=== PATIENT | female | born 1990 | race African-American/Black ===

== ENCOUNTER 2016-11-26 15:41 | Emergency (ER) ==
[2016-11-26 15:57] VITALS: BP 113/73; TEMP 97.7; BMI 28.1
--- NOTE | 2016-11-26 16:00 | ED.PDOC ---
General ED Provider: Dr. RODOLFO QUINTEROS JR Chief Complaint: Cough Stated Complaint: Cough, nonprod x 4-5 days. Started taking Robitussin today. Minor nasal congestion. Cough worse at noc. Throat sore "a little bit".[End] 97.7 75 20 96% 113/73 Time Seen by Physician: 15:59 Mode of Arrival: Walk-In Information Source: Patient Exam Limitations: No limitations [facility] Documentation Reviewed and Agree: No Review of Systems - Review Of Systems Constitutional: Reports: No symptoms Eyes: Reports: No symptoms Ears, Nose, Mouth, Throat: Reports: Throat pain Respiratory: Reports: Cough Cardiac: Reports: No symptoms GI: Reports: No symptoms : Reports: No symptoms Musculoskeletal: Reports: No symptoms Skin: Reports: No symptoms Neurological: Reports: No symptoms Endocrine: Reports: No symptoms Hematologic/Lymphatic: Reports: Swollen glands (tender ant nodes- no fever no throat erythema) All Other Systems: Other Past Medical History - Past Medical History Previously Healthy: Yes Endocrine: Reports: None Cardiovascular: Reports: None Respiratory: Reports: None Hematological: Reports: None Gastrointestinal: Reports: None Genitourinary: Reports: None Neuro/Psych: Reports: None Musculoskeletal: Reports: None Cancer: Reports: None Last Menstrual Period: beginning of november Other Pertinent Past Medical History: 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- - Surgical History General Surgical History: Reports: Tonsillectomy, Other (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-) - Family History Family History: Reports: Unknown - Social History Smoking Status: Current every day smoker, Light tobacco smoker Hx Substance Use: No Alcohol Screening: Occasionally Physical Exam - Physical Exam Appearance: Well-appearing Pain Distress: Mild Eyes: TONO, EOMI, Conjunctiva clear ENT: Ears normal, Nose normal, Oropharynx normal Neck: Supple (note tender nodes) Respiratory: Airway patent, Breath sounds clear, Breath sounds equal, Respirations nonlabored Cardiovascular: RRR, Pulses normal, No rub, No murmur GI/: Soft, Nontender, No masses, Bowel sounds normal, No Organomegaly Musculoskeletal: Normal strength, ROM intact, No edema, No calf tenderness Skin: Warm, Dry, Normal color Neurological: Sensation intact, Motor intact, Reflexes intact, Cranial nerves intact, Alert, Oriented Psychiatric: Affect appropriate, Mood appropriate Critical Care Note - Critical Care Note Total Time (mins): 0 Course - Course Vital Signs: Temp Pulse Resp BP Pulse Ox 11/26/16 15:43 97.7 F 75 20 113/73 96 Departure - Departure Time of Disposition: 16:10 Disposition: HOME SELF-CARE Discharge Problem: Cough Instructions: Chronic Cough (ED), Guaifenesin (By mouth), Dextromethorphan (By mouth), Antitussives (By mouth) Condition: Good Pt referred to PMD for follow-up: Yes Additional Instructions: Robitussin with codeine for cough chloraeptic for sore throat generics are fine avoid others if fever over 101.0 return if worse follwo up PMD if not improved or if productive cough Prescriptions: Guaifenesin/Codeine Phosphate [Robitussin AC Syrup] 10 ml PO Q6H PRN #240 ml PRN Reason: Cough Allergies/Adverse Reactions: Allergies No Known Allergies Allergy (Verified 11/26/16 15:50) Home Medications: Ambulatory Orders Guaifenesin/Codeine Phosphate [Robitussin AC Syrup] 10 ml PO Q6H PRN #240 ml
== END 2016-11-26 16:23 | disposition home or self-care (01) ==
LOC: ED 15:41
DX: R05 Cough (principal); J02.9 Acute pharyngitis, unspecified; F17.210 Nicotine dependence, cigarettes, uncomplicated
CPT/HCPCS: 99282

== ENCOUNTER 2017-05-28 12:54 | Outpatient (CLI) ==
[2017-05-28 12:58] LABS: FLU INTERNAL QC INTERNAL QC VALID; RAPID FLU A NEGATIVE (NEGATIVE); RAPID FLU B NEGATIVE (NEGATIVE)
== END 2017-05-28 12:55 | disposition home or self-care (01) ==
LOC: LAB 12:54
PROVIDERS: ATTEND Nurse Practitioner Family
DX: J02.9 Acute pharyngitis, unspecified (principal); R50.9 Fever, unspecified
CPT/HCPCS: 87804; 87880

== ENCOUNTER 2017-07-08 22:26 | Emergency (ER) ==
[2017-07-08 22:35] VITALS: BP 107/65; TEMP 96.7; BMI 26.9
[2017-07-08] MEDS ORDERED: NORCO 7.5-325 PO STA (22:45)
[2017-07-08] MEDS ORDERED: AUGMENTIN 875-125 MG TAB PO STA (22:45)
--- NOTE | 2017-07-08 22:48 | ED.PDOC ---
General ED Provider: Dr. RENZO SANDERS-ER Chief Complaint: Earache Stated Complaint: my ear hurts Time Seen by Physician: 22:46 Mode of Arrival: Walk-In Information Source: Patient Exam Limitations: No limitations Primary [facility] and Triage Documentation Reviewed and Agree: Yes Reviewed sepsis parameters & appropriate labs ordered?: Yes System Inflammatory Response Syndrome: Not Applicable Sepsis Protocol: For patient's 13 years and over: Temp is 96.8 and below OR 101 and greater Pulse >90 BPM Resp >20/minute Acutely Altered Mental Status Are patient's symptoms suggestive of a new infection, such as: -Pneumonia -Skin, Soft Tissue -Endocarditis -UTI -Bone, Joint Infection -Implantable Device -Acute Abdominal Infection -Wound Infection -Meningitis -Blood Stream Catheter Infection -Unknown EENT Complaint Exam - Ear Complaint/Exam Onset/Duration: 24hrs Symptoms Are: Still present Timing: Constant Initial Severity: Mild Current Severity: Mild Character: Reports: Dull pain, Aching pain Aggravating: Reports: Tugging on ear Alleviating: Reports: None Associated Signs and Symptoms: Reports: Ear swelling Vesicles to External Pinna: No Vesicles to Tragus: No TMJ Tenderness: None Mastoid Tenderness: None Tragal Tenderness: None External Canal: Erythema, Tenderness, Swelling Differential Diagnoses: Otitis Externa Review of Systems - Review Of Systems Constitutional: Reports: No symptoms Eyes: Reports: No symptoms Ears, Nose, Mouth, Throat: Reports: Ear pain Respiratory: Reports: No symptoms Cardiac: Reports: No symptoms GI: Reports: No symptoms : Reports: No symptoms Musculoskeletal: Reports: No symptoms Skin: Reports: No symptoms Neurological: Reports: No symptoms Endocrine: Reports: No symptoms Hematologic/Lymphatic: Reports: No symptoms All Other Systems: Reviewed and Negative Past Medical History - Past Medical History Previously Healthy: Yes Endocrine: Reports: None Cardiovascular: Reports: None Respiratory: Reports: None Hematological: Reports: None Gastrointestinal: Reports: None Genitourinary: Reports: None Neuro/Psych: Reports: None Musculoskeletal: Reports: None Cancer: Reports: None Last Menstrual Period: 6 days ago Other Pertinent Past Medical History: 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- - Surgical History General Surgical History: Reports: Tonsillectomy, Other (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-) - Family History Family History: Reports: Unknown - Social History Smoking Status: Current every day smoker, Light tobacco smoker Hx Substance Use: No Alcohol Screening: Occasionally - Immunizations Tetanus Shot up to Date: No Physical Exam - Physical Exam Appearance: Well-appearing Ill-appearing: Mild Eyes: TONO, EOMI, Conjunctiva clear ENT: Ears normal, Nose normal, Erythema Neck: Supple Respiratory: Airway patent Cardiovascular: RRR, Pulses normal, No rub, No murmur GI/: Soft, Nontender, No masses, Bowel sounds normal, No Organomegaly Musculoskeletal: Normal strength, ROM intact, No edema, No calf tenderness Skin: Warm, Dry, Normal color Neurological: Sensation intact, Motor intact, Reflexes intact, Cranial nerves intact, Alert, Oriented Psychiatric: Affect appropriate, Mood appropriate Critical Care Note - Critical Care Note Total Time (mins): 0 Course - Course Orders, Labs, Meds: Orders Category Date Time Status Amoxicillin/Potassium Clav [Augmentin 875-125 mg Tab] MEDS 07/08/17 22:45 Stat 1 tab PO ONCE STA Hydrocodone Bit/Acetaminophen [Rose 7.5-325] MEDS 07/08/17 22:45 Stat 1 tab PO ONCE STA Vital Signs: Temp Pulse Resp BP Pulse Ox 07/08/17 22:28 96.7 F L 84 20 107/65 98 Departure - Departure Time of Disposition: 22:47 Disposition: HOME SELF-CARE Discharge Problem: Otitis media Qualifiers: Otitis media type: suppurative Chronicity: acute Laterality: left Recurrence: not specified as recurrent Spontaneous tympanic membrane rupture: without spontaneous rupture Qualified Code(s): H66.002 - Acute suppurative otitis media without spontaneous rupture of ear drum, left ear Otitis externa Qualifiers: Otitis externa type: noninfectious Noninfectious otitis externa type: other type Chronicity: acute Laterality: left Qualified Code(s): H60.592 - Other noninfective acute otitis externa, left ear Instructions: Otitis Externa (ED) Condition: Good Pt referred to PMD for follow-up: Yes IPMP verified?: No Additional Instructions: norco 7.5mg q 4hrs prn pain #10--augmentin 875mg bid x7 days--floxin otic drops 5 dfrops into the ear bid x 7days--f/u witj pcp Allergies/Adverse Reactions: Allergies No Known Allergies Allergy (Verified 01/29/18 22:33) Home Medications: Ambulatory Orders Ibuprofen 800 mg PO Q8H PRN 05/28/17 Disposition Discussed With: Patient
== END 2017-07-08 23:00 | disposition home or self-care (01) ==
LOC: ED 22:26
DX: H66.002 Acute suppurative otitis media without spontaneous rupture of ear drum, left ear (principal); H60.592 Other noninfective acute otitis externa, left ear; F17.210 Nicotine dependence, cigarettes, uncomplicated
CPT/HCPCS: 99282

== ENCOUNTER 2017-08-27 22:14 | Emergency (ER) ==
[2017-08-27 22:29] VITALS: BP 105/74; TEMP 99.1; BMI 26.6
[2017-08-27] MEDS ORDERED: DECADRON 4 MG/ML SDV IM STA (22:41)
[2017-08-27] MEDS ORDERED: TORADOL IM STA (22:41)
--- NOTE | 2017-08-27 22:44 | ED.PDOC ---
General ED Provider: Dr. LENCHO KANG Chief Complaint: Fever Stated Complaint: Been coughing, congested, not getting better. fever 101, Time Seen by Physician: 22:42 Mode of Arrival: Walk-In Information Source: Patient Primary Care Provider: LENCHO K[facility] Nursing and Triage Documentation Reviewed and Agree: Yes Reviewed sepsis parameters & appropriate labs ordered?: No System Inflammatory Response Syndrome: Not Applicable Sepsis Protocol: For patient's 13 years and over: Temp is 96.8 and below OR 101 and greater Pulse >90 BPM Resp >20/minute Acutely Altered Mental Status Are patient's symptoms suggestive of a new infection, such as: -Pneumonia -Skin, Soft Tissue -Endocarditis -UTI -Bone, Joint Infection -Implantable Device -Acute Abdominal Infection -Wound Infection -Meningitis -Blood Stream Catheter Infection -Unknown Respiratory Complaint Exam - Respiratory Complaint/Exam Symptoms Are: Still present Timing: Constant Initial Severity: Moderate Current Severity: Moderate Location: Chest Character: Reports: Productive cough Aggravating: Reports: URI Alleviating: Reports: None Associated Signs and Symptoms: Reports: Fever, Chills, Nasal congestion, Sinus discomfort. Denies: Rapid breathing, Dyspnea, Chest pain, Pleuritic chest pain , Wheezing, Hemoptysis, Dizziness, Calf pain, Calf swelling, Edema, URI, Hoarseness, Vomiting, Sore throat, Weight loss, Decreased oral intake, Increased thirst, Increased appetite, Increased urination History of Healthcare-Acquired Pneumonia: No Related Surgical History: Reports: None Pulmonary Embolism Risk Factors: None Cardiac Risk Factors: Reports: None Pseudomonas Risk Factors: Reports: None Tuberculosis Risk Factors: Reports: None Status Asthmaticus Risk Factors: Reports: None Home Oxygen Use: No Recent Stress Test: No Recent Echo/LV Function: No Current Antibiotic Use: No Current Asthma Medication Use: No Respiratory Distress: None Inadequate Respiratory Effort: No Dysphagia Present: No Stridor Present: No JVD Present: No Retractions: Not Present Diminished Breath Sounds: No Differential Diagnoses: Pneumonia, Bronchitis, Influenza Review of Systems - Review Of Systems Constitutional: Reports: Fever, Malaise, Weakness Eyes: Reports: No symptoms Ears, Nose, Mouth, Throat: Reports: Nose discharge Respiratory: Reports: Cough Cardiac: Reports: No symptoms GI: Reports: No symptoms : Reports: No symptoms Musculoskeletal: Reports: No symptoms Skin: Reports: No symptoms Neurological: Reports: No symptoms Endocrine: Reports: No symptoms Hematologic/Lymphatic: Reports: No symptoms All Other Systems: Reviewed and Negative Past Medical History - Past Medical History Previously Healthy: Yes Endocrine: Reports: None Cardiovascular: Reports: None Respiratory: Reports: None Hematological: Reports: None Gastrointestinal: Reports: None Genitourinary: Reports: None Neuro/Psych: Reports: None Musculoskeletal: Reports: None Cancer: Reports: None Last Menstrual Period: PRESENTLY Other Pertinent Past Medical History: 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- - Surgical History General Surgical History: Reports: Tonsillectomy, Other (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-) - Family History Family History: Reports: Unknown - Social History Smoking Status: Current every day smoker, Light tobacco smoker Hx Substance Use: No Alcohol Screening: Occasionally - Immunizations Tetanus Shot up to Date: Yes Physical Exam - Physical Exam Appearance: Well-appearing, No pain distress, Well-nourished Eyes: TONO, EOMI, Conjunctiva clear ENT: Ears normal, Nose normal, Oropharynx normal Respiratory: Airway patent, Breath sounds clear, Breath sounds equal, Respirations nonlabored Cardiovascular: RRR, Pulses normal, No rub, No murmur GI/: Soft, Nontender, No masses, Bowel sounds normal, No Organomegaly Musculoskeletal: Normal strength, ROM intact, No edema, No calf tenderness Skin: Warm, Dry, Normal color Neurological: Sensation intact, Motor intact, Reflexes intact, Cranial nerves intact, Alert, Oriented Psychiatric: Affect appropriate, Mood appropriate Interpretation - Radiology Interpretation Radiology Interpretation By: ED Physician Radiology Results: Negative Exam Interpreted: CXR Critical Care Note - Critical Care Note Total Time (mins): 20 Course - Course Orders, Labs, Meds: Lab Review 08/27/17 22:30 Influ A Molecular Assay Negative by naat Influ B Molecular Assay Negative by naat Orders Category Date Time Status FLU A/B MOLECULAR Stat LAB 08/27/17 22:30 Completed Dexamethasone 4 mg/ml Inj [Decadron 4 mg/ml Sdv] MEDS 08/27/17 22:41 Discontinued 4 mg IM ONCE STA Ketorolac Tromethamine [Toradol] MEDS 08/27/17 22:41 Discontinued 30 mg IM ONCE STA CHEST, 2 VIEWS PA & LAT Stat RADS 08/27/17 22:41 Taken Medications Discontinued Medications Generic Name Dose Route Start Last Admin Trade Name Freq PRN Reason Stop Dose Admin Dexamethasone Sodium Phosphate 4 mg 08/27/17 22:41 08/27/17 22:56 Decadron 4 Mg/Ml Sdv IM 08/27/17 22:42 4 mg ONCE STA Administration Ketorolac Tromethamine 30 mg 08/27/17 22:41 08/27/17 22:55 Toradol IM 08/27/17 22:42 30 mg ONCE STA Administration Vital Signs: Temp Pulse Resp BP Pulse Ox 08/27/17 22:15 99.1 F 116 H 20 105/74 98 Departure - Departure Time of Disposition: 23:11 Disposition: HOME SELF-CARE Discharge Problem: URTI (acute upper respiratory infection) Instructions: Upper Respiratory Infection (ED) Condition: Stable Pt referred to PMD for follow-up: Yes IPMP verified?: No Additional Instructions: Take medication with food Increase Hydration probiotics Prescriptions: Cephalexin [Keflex] 500 mg PO Q12HR #14 capsule Guaifenesin/Dextromethorphan [Robitussin Cough-Chest Dm Liq] 10 ml PO TID #1 bottle Prednisone 10 mg PO BIDWM #14 tablet Allergies/Adverse Reactions: Allergies No Known Allergies Allergy (Verified 08/27/17 22:25) Home Medications: Ambulatory Orders Ibuprofen 800 mg PO Q8H PRN 05/28/17 Cephalexin [Keflex] 500 mg PO Q12HR #14 capsule 08/27/17 Guaifenesin/Dextromethorphan [Robitussin Cough-Chest Dm Liq] 10 ml PO TID #1 bottle 08/27/17 Prednisone 10 mg PO BIDWM #14 tablet 08/27/17 Disposition Discussed With: Patient
[2017-08-27] MEDS ORDERED: ROBITUSSIN DM SYRUP PO STA (23:12)
--- NOTE | 2017-08-28 04:48 | DI ---
EXAM: Chest, 2 views, 08/27/2017 HISTORY: Cough COMPARISON: 01/24/2016 FINDINGS / IMPRESSION: Cardiomediastinal countours appear stable. There is no focal pulmonary conso lidation. No pleural effusion or pneumothorax. No acute cardiopulmonary process.
== END 2017-08-27 23:25 | disposition home or self-care (01) ==
LOC: ED 22:14
DX: J06.9 Acute upper respiratory infection, unspecified (principal); F17.210 Nicotine dependence, cigarettes, uncomplicated
CPT/HCPCS: 87502; 96372; 99283

== ENCOUNTER 2017-11-12 21:52 | Emergency (ER) ==
[2017-11-12 21:58] VITALS: BP 113/79; TEMP 97.7; BMI 25.9
[2017-11-12] MEDS ORDERED: DECADRON 4 MG/ML SDV IM STA (22:08)
[2017-11-12] MEDS ORDERED: TORADOL IM STA (22:08)
--- NOTE | 2017-11-12 22:12 | ED.PDOC ---
General ED Provider: Dr. LENCHO KANG Chief Complaint: Back Pain Stated Complaint: Patient works at [employer], she is been hurting in the lower back since eyerday, the pain radiates to both legs, sharp pain,. no tingling. Time Seen by Physician: 22:09 Mode of Arrival: Walk-In Information Source: Patient Primary Care Provider: LENCHO KANG-[facility] Nursing and Triage Documentation Reviewed and Agree: Yes Reviewed sepsis parameters & appropriate labs ordered?: Yes System Inflammatory Response Syndrome: Not Applicable Sepsis Protocol: For patient's 13 years and over: Temp is 96.8 and below OR 101 and greater Pulse >90 BPM Resp >20/minute Acutely Altered Mental Status Are patient's symptoms suggestive of a new infection, such as: -Pneumonia -Skin, Soft Tissue -Endocarditis -UTI -Bone, Joint Infection -Implantable Device -Acute Abdominal Infection -Wound Infection -Meningitis -Blood Stream Catheter Infection -Unknown Musculoskeletal Complaint Exam - Back Pain Complaint/Exam Mechanism of Injury: Reports: No known trauma Symptoms Are: Still present Timing: Constant Episodes Lasting: Minutes Initial Severity: Moderate Current Severity: Moderate Location: Reports: Discrete Character: Reports: Aching, Throbbing Aggravating: Reports: Movements, Lifting, Bending, Walking, Cough Alleviating: Reports: None Associated Signs and Symptoms: Denies: Swelling, Redness, Bruising, Fever, Weakness, Numbness, Tingling, Abdominal pain, Flank pain, Bladder incontinence, Bowel incontinence, Weight loss, Pain with weight bearing TAD Risk Factors: Reports: None AAA Risk Factors: Reports: None Cauda Equina Risk Factors: Reports: None Epidural Abcess Risk Factors: Reports: None Related Surgical History: Reports: None Focal Tenderness: Yes Paraspinal Muscle Tenderness: Yes Paraspinal Muscle Spasm: Yes Scoliosis: No Lordosis: No Kyphosis: No SLR Test: Right Positive, Left Positive Focal Weakness: Present: None Focal Sensory Loss: Present: None Gait: Present: Normal Differential Diagnoses: Fracture, Strain Review of Systems - Review Of Systems Constitutional: Reports: No symptoms Eyes: Reports: No symptoms Ears, Nose, Mouth, Throat: Reports: No symptoms Respiratory: Reports: No symptoms Cardiac: Reports: No symptoms GI: Reports: No symptoms : Reports: No symptoms Musculoskeletal: Reports: Back pain Skin: Reports: No symptoms Neurological: Reports: No symptoms Endocrine: Reports: No symptoms Hematologic/Lymphatic: Reports: No symptoms All Other Systems: Reviewed and Negative Past Medical History - Past Medical History Previously Healthy: Yes Endocrine: Reports: None Cardiovascular: Reports: None Respiratory: Reports: None Hematological: Reports: None Gastrointestinal: Reports: None Genitourinary: Reports: None Neuro/Psych: Reports: None Musculoskeletal: Reports: None Cancer: Reports: None Last Menstrual Period: 11/07/17 Other Pertinent Past Medical History: 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- - Surgical History General Surgical History: Reports: Tonsillectomy, Other (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-) - Family History Family History: Reports: Unknown - Social History Smoking Status: Current every day smoker, Light tobacco smoker Smoking Cessation Counseling Time: > 3 min - 10 min Hx Substance Use: No Alcohol Screening: Occasionally - Immunizations Tetanus Shot up to Date: Yes Physical Exam - Physical Exam Appearance: Ill-appearing, Obese Pain Distress: Moderate Eyes: TONO, EOMI, Conjunctiva clear ENT: Ears normal, Nose normal, Oropharynx normal Respiratory: Airway patent, Breath sounds clear, Breath sounds equal, Respirations nonlabored Cardiovascular: RRR, Pulses normal, No rub, No murmur GI/: Soft, Nontender, No masses, Bowel sounds normal, No Organomegaly Musculoskeletal: Limited ROM, Limited strength Skin: Warm, Dry, Normal color Neurological: Sensation intact, Motor intact, Reflexes intact, Cranial nerves intact, Alert, Oriented Psychiatric: Affect appropriate, Mood appropriate Critical Care Note - Critical Care Note Total Time (mins): 30 Course - Course Orders, Labs, Meds: Orders Category Date Time Status URINALYSIS C & S IF INDICATED Stat LAB 11/12/17 22:08 Uncollected URINE Stat LAB 11/12/17 22:08 Uncollected Dexamethasone 4 mg/ml Inj [Decadron 4 mg/ml Sdv] MEDS 11/12/17 22:08 Stat 4 mg IM ONCE STA Ketorolac Tromethamine [Toradol] MEDS 11/12/17 22:08 Stat 60 mg IM ONCE STA LUMBAR SPINE, 2 OR 3 VIEWS Stat RADS 11/12/17 22:09 Ordered Medications Generic Name Dose Route Start Last Admin Trade Name Freq PRN Reason Stop Dose Admin Dexamethasone Sodium Phosphate 4 mg 11/12/17 22:08 Decadron 4 Mg/Ml Sdv IM 06/05/18 22:09 ONCE STA Ketorolac Tromethamine 60 mg 11/12/17 22:08 Toradol IM 11/12/17 22:09 ONCE STA Vital Signs: Temp Pulse Resp BP Pulse Ox 11/12/17 21:53 97.7 F 94 H 20 113/79 96 Departure - Departure Time of Disposition: 22:11 Disposition: HOME SELF-CARE Discharge Problem: Backache Condition: Stable Pt referred to PMD for follow-up: Yes IPMP verified?: No Additional Instructions: Rest Hot pack F/U [facility] IN 2 DAYS Prescriptions: Cyclobenzaprine HCl [Flexeril] 5 mg PO BID #14 tablet Prednisone 10 mg PO BIDWM #14 tablet Allergies/Adverse Reactions: Allergies No Known Allergies Allergy (Verified 11/12/17 21:58) Home Medications: Ambulatory Orders Cyclobenzaprine HCl [Flexeril] 5 mg PO BID #14 tablet 11/12/17 Prednisone 10 mg PO BIDWM #14 tablet 11/12/17 Disposition Discussed With: Patient
--- NOTE | 2017-11-13 00:37 | DI ---
EXAM: Three views of the lumbar spine. HISTORY: Back pain. FINDINGS: There is mild dextroscoliosis of the thoracolumbar spine. There is normal alignment of the lumbar vertebral bodies and facets. The vertebral body heights and intervertebral disc spaces are m aintained. No evidence of fracture. The pedicles are intact. Impression: Mild dextroscoliosis of the thoracolumbar spine.
[2017-11-13] MEDS ORDERED: MORPHINE 2 MG/ML SYRINGE IM STA (00:53)
== END 2017-11-13 01:20 | disposition home or self-care (01) ==
LOC: ED 21:52
DX: M54.5 Low back pain (principal); F17.210 Nicotine dependence, cigarettes, uncomplicated
CPT/HCPCS: 81001; 81025; 87086; 96372; 99283

== ENCOUNTER 2017-12-07 10:06 | Emergency (ER) ==
[2017-12-07 10:13] VITALS: BP 116/76; TEMP 97.4; BMI 25.3
--- NOTE | 2017-12-07 10:34 | ED.PDOC ---
General ED Provider: Dr. ENE DAVIS Chief Complaint: Back Pain Stated Complaint: Patient is a 27 year old female who comes to the ER with severe lower back pain for the past few weeks. Pain got worse today. She was supposed to follow up with PCP next week. But pain was intolorable so came to the ER. Staets that the flexeril did not help her back pain only made her sleepy. Time Seen by Physician: 10:32 Mode of Arrival: Walk-In Information Source: Patient Exam Limitations: No limitations [facility] T[facility] Documentation Reviewed and Agree: Yes Does patient meet sepsis criteria?: No System Inflammatory Response Syndrome: Pulse >90 BPM Sepsis Protocol: For patient's 13 years and over: Temp is 96.8 and below OR 101 and greater Pulse >90 BPM Resp >20/minute Acutely Altered Mental Status Are patient's symptoms suggestive of a new infection, such as: -Pneumonia -Skin, Soft Tissue -Endocarditis -UTI -Bone, Joint Infection -Implantable Device -Acute Abdominal Infection -Wound Infection -Meningitis -Blood Stream Catheter Infection -Unknown Musculoskeletal Complaint Exam - Back Pain Complaint/Exam Mechanism of Injury: Reports: No known trauma Onset/Duration: 3 weeks Symptoms Are: Still present Timing: Constant Initial Severity: Moderate Current Severity: Severe Location: Reports: Radiating (right thigh) Character: Reports: Aching, Throbbing, Spasmodic Aggravating: Reports: Movements, Lifting, Bending, Walking Alleviating: Reports: Rest Associated Signs and Symptoms: Denies: Swelling, Redness, Bruising, Fever, Weakness, Numbness, Tingling, Abdominal pain, Flank pain, Bladder incontinence, Bowel incontinence, Weight loss, Pain with weight bearing Related History: Reports: Similar episode, Occupational injury (poor lifting technique ) TAD Risk Factors: Reports: None AAA Risk Factors: Reports: None Cauda Equina Risk Factors: Reports: None Focal Tenderness: Yes Paraspinal Muscle Tenderness: Yes Paraspinal Muscle Spasm: Yes Kyphosis: No SLR Test: Right Positive, Left Positive Hip Motion Testing Pain: Right Negative, Left Positive Focal Weakness: Present: None Focal Sensory Loss: Present: None Gait: Present: Abnormal (due to pain ) Back Picture: 1 - pain and tenderness. Differential Diagnoses: Herniated Disk, Strain, Sprain Review of Systems - Review Of Systems Constitutional: Reports: No symptoms Eyes: Reports: No symptoms Ears, Nose, Mouth, Throat: Reports: No symptoms Respiratory: Reports: No symptoms Cardiac: Reports: No symptoms GI: Reports: No symptoms : Reports: No symptoms Musculoskeletal: Reports: Back pain Skin: Reports: No symptoms Neurological: Reports: No symptoms Endocrine: Reports: No symptoms Hematologic/Lymphatic: Reports: No symptoms All Other Systems: Reviewed and Negative Past Medical History - Past Medical History Previously Healthy: Yes Endocrine: Reports: None Cardiovascular: Reports: None Respiratory: Reports: None Hematological: Reports: None Gastrointestinal: Reports: None Genitourinary: Reports: None Neuro/Psych: Reports: None Musculoskeletal: Reports: None Cancer: Reports: None Last Menstrual Period: 11/2017 Other Pertinent Past Medical History: 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- - Surgical History General Surgical History: Reports: Tonsillectomy, Other (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-) - Family History Family History: Reports: Unknown - Social History Smoking Status: Current some day smoker Hx Substance Use: No Alcohol Screening: Occasionally - Immunizations Tetanus Shot up to Date: Yes Physical Exam - Physical Exam Appearance: Well-appearing, Well-nourished Pain Distress: Moderate Neck: Supple Respiratory: Airway patent, Breath sounds clear, Breath sounds equal, Respirations nonlabored Cardiovascular: RRR, Pulses normal, No rub, No murmur GI/: Soft, Nontender, No masses, Bowel sounds normal, No Organomegaly Musculoskeletal: ROM intact, No edema, No calf tenderness, Limited ROM (of lower legs with foll extension -staight leg raising. ) Skin: Warm, Dry, Normal color Neurological: Sensation intact, Motor intact, Reflexes intact, Cranial nerves intact, Alert, Oriented Psychiatric: Anxious Critical Care Note - Critical Care Note Total Time (mins): 0 Comments: Reviewed ER visit and x rays that were negative no trauma no fever, no spinal tenderness no need for further imaging. Course - Course Orders, Labs, Meds: Lab Review 12/07/17 12/07/17 10:35 10:35 Urine Color Yellow Urine Clarity Slightly Urine pH 7.0 Ur Specific [place] 1.025 Urine Protein Negative Urine Glucose (UA) Negative Urine Ketones Negative Urine Blood 2+ Urine Nitrite Negative Urine Bilirubin Negative Urine Urobilinogen 1.0 Ur Leukocyte Esterase Trace Ur Squamous Epith Cells Pending Urine Test Negative Orders Category Date Time Status URINALYSIS C & S IF INDICATED Stat LAB 12/07/17 10:35 Received URINE Stat LAB 12/07/17 10:35 Completed Ketorolac Tromethamine [Toradol] MEDS 12/07/17 10:49 Stat 60 mg IM ONCE STA Nalbuphine HCl [Nubain] MEDS 12/07/17 10:51 Stat 10 mg IM ONCE STA Vital Signs: Temp Pulse Resp BP Pulse Ox 12/07/17 10:08 97.4 F L 106 H 16 116/76 98 Departure - Departure Time of Disposition: 11:30 Disposition: HOME SELF-CARE Discharge Problem: Low back sprain Qualifiers: Encounter type: initial encounter Qualified Code(s): S33.9XXA - Sprain of unspecified parts of lumbar spine and pelvis, initial encounter Instructions: Low Back Strain (ED), Exercise Safety (ED), Lumbar Radiculopathy (ED), Core Strengthening Exercises (ED) Condition: Fair Pt referred to PMD for follow-up: Yes IPMP verified?: Yes (No recent use. Last filled prescription was Jun 2017 total 10) Additional Instructions: Use proper lifting Technique Off work for 5 days Take Medications as prescribed Follow up with PCP as scheduled next Saturday You may need MRI or Physical therapy Return if worse Prescriptions: Hydrocodone/Acetaminophen [[place] 5-325 Tablet] 1 tab PO Q6HR PRN #20 tablet PRN Reason: PAIN Ibuprofen [Motrin] 600 mg PO Q6H PRN #30 tablet PRN Reason: Analgesia Allergies/Adverse Reactions: Allergies No Known Allergies Allergy (Verified 12/07/17 10:17) Home Medications: Ambulatory Orders Hydrocodone/Acetaminophen [[place] 5-325 Tablet] 1 tab PO Q6HR PRN #20 tablet Ibuprofen [Motrin] 600 mg PO Q6H PRN #30 tablet 12/07/17 Disposition Discussed With: Patient, Family
[2017-12-07] MEDS ORDERED: TORADOL IM STA (10:49)
[2017-12-07] MEDS ORDERED: NUBAIN IM STA (10:51)
[2017-12-07] MEDS ORDERED: PHENERGAN 25 MG/ML VIAL 25 MG in SODIUM CHLORIDE 50 ML IV STA (10:54)
[2017-12-07] MEDS ORDERED: DEMEROL 50 MG/ML VIAL IM STA (10:54)
[2017-12-07] MEDS ORDERED: PHENERGAN 25 MG/ML VIAL 25 MG in SODIUM CHLORIDE 50 ML IM STA (10:56)
[2017-12-07] MEDS ORDERED: PHENERGAN 25 MG/ML VIAL ONE (10:58)
[2017-12-07] MEDS ORDERED: PHENERGAN 25 MG/ML VIAL IM STA (11:02)
== END 2017-12-07 11:38 | disposition home or self-care (01) ==
LOC: ED 10:06
DX: S33.9XXA Sprain of unspecified parts of lumbar spine and pelvis, initial encounter (principal); X50.1XXA Overexertion from prolonged static or awkward postures, initial encounter; F17.210 Nicotine dependence, cigarettes, uncomplicated
CPT/HCPCS: 81001; 81025; 96372; 99283

== ENCOUNTER 2018-03-17 12:25 | Emergency (ER) ==
[2018-03-17 12:30] VITALS: BP 110/75; TEMP 96.8; BMI 25.8
[2018-03-17] MEDS: LIDOCAINE HCL 1% SDV SUBCUT STA (12:55)
--- NOTE | 2018-03-17 14:06 | ED.PDOC ---
General ED Provider: Dr. CYRIL CANTU Chief Complaint: Vaginal Bleeding Stated Complaint: Vaginal bleeding X 4 days; cough and back pain (acute/chronic) Time Seen by Physician: 13:55 Mode of Arrival: Walk-In Information Source: Patient Exam Limitations: No limitations Primary Care Provider: TIFFANIE BEDOYA Nursing and Triage Documentation Reviewed and Agree: Yes Does patient meet sepsis criteria?: No System Inflammatory Response Syndrome: Not Applicable Sepsis Protocol: For patient's 13 years and over: Temp is 96.8 and below OR 101 and greater Pulse >90 BPM Resp >20/minute Acutely Altered Mental Status Are patient's symptoms suggestive of a new infection, such as: -Pneumonia -Skin, Soft Tissue -Endocarditis -UTI -Bone, Joint Infection -Implantable Device -Acute Abdominal Infection -Wound Infection -Meningitis -Blood Stream Catheter Infection -Unknown Complaint Exam - UTI Female Complaint/Exam : 1 Para: 1 Hx Total # of Abortions (Spontaneous & Elective): 0 Review of Systems - Review Of Systems Constitutional: Reports: No symptoms Respiratory: Reports: Cough (4 days) : Reports: Other (Vaginal bleeding X 4 days - not heavy) Musculoskeletal: Reports: Back pain (lower back) Neurological: Reports: No symptoms All Other Systems: Reviewed and Negative Past Medical History - Past Medical History Previously Healthy: Yes Endocrine: Reports: None Cardiovascular: Reports: None Respiratory: Reports: None Hematological: Reports: None Gastrointestinal: Reports: None Genitourinary: Reports: None Neuro/Psych: Reports: None Musculoskeletal: Reports: None Cancer: Reports: None Last Menstrual Period: 2 weeks ago Other Pertinent Past Medical History: 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- - Surgical History General Surgical History: Reports: Tonsillectomy, Other (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-) - Family History Family History: Reports: Unknown - Social History Smoking Status: Current some day smoker Hx Substance Use: No Alcohol Screening: Occasionally Physical Exam - Physical Exam Appearance: Well-appearing Eyes: TONO, EOMI ENT: Oropharynx normal Neck: Supple Respiratory: Airway patent, Breath sounds clear, Breath sounds equal Cardiovascular: RRR Musculoskeletal: Normal strength, ROM intact, No edema Skin: Warm, Dry, Normal color Neurological: Sensation intact, Motor intact, Alert, Oriented Psychiatric: Affect appropriate, Mood appropriate Critical Care Note - Critical Care Note Total Time (mins): 15 Course - Course Hematology/Chemistry: 03/17/18 14:18 10/08/18 14:18 Orders, Labs, Meds: Lab Review 03/17/18 03/17/18 03/17/18 12:35 12:35 14:18 WBC 5.12 RBC 4.19 L Hgb 11.2 L Hct 34.7 L MCV 82.8 MCH 26.7 L MCHC 32.3 RDW Coeff of [place] 13.7 Plt Count 185 Immature Gran % (Auto) 0.2 Neut % (Auto) 60.5 Lymph % (Auto) 27.1 Ocean % (Auto) 10.0 Eos % (Auto) 1.8 Baso % (Auto) 0.4 Immature Gran # (Auto) 0.0 Neut # (Auto) 3.1 Lymph # (Auto) 1.4 Ocean # (Auto) 0.5 Eos # (Auto) 0.1 Baso # (Auto) 0.0 Sodium Potassium Chloride Carbon Dioxide Anion Gap BUN Creatinine Estimated GFR (MDRD) BUN/Creatinine Ratio Glucose Calcium Total Bilirubin AST ALT Alkaline Phosphatase Total Protein Albumin Globulin Albumin/Globulin Ratio Urine Color Yellow Urine Clarity Slightly Urine pH 8.5 Ur Specific [place] 1.020 Urine Protein 1+ Urine Glucose (UA) Negative Urine Ketones Negative Urine Blood 3+ Urine Nitrite Negative Urine Bilirubin Negative Urine Urobilinogen 0.2 Ur Leukocyte Esterase Negative Urine Microscopic RBC 20-30 Urine Microscopic WBC 2-5 Ur Squamous Epith Cells 2-5 Urine Bacteria 2+ Urine Mucus 2+ Urine Test Negative 03/17/18 14:18 WBC RBC Hgb Hct MCV MCH MCHC RDW Coeff of [place] Plt Count Immature Gran % (Auto) Neut % (Auto) Lymph % (Auto) Ocean % (Auto) Eos % (Auto) Baso % (Auto) Immature Gran # (Auto) Neut # (Auto) Lymph # (Auto) Ocean # (Auto) Eos # (Auto) Baso # (Auto) Sodium 137.9 Potassium 3.96 Chloride 106.8 Carbon Dioxide 27.6 Anion Gap 7.46 BUN 9.3 Creatinine 0.56 L Estimated GFR (MDRD) 159.00 BUN/Creatinine Ratio 16.60 Glucose 86.8 Calcium 8.61 Total Bilirubin 0.15 L AST 15.6 ALT 8.8 Alkaline Phosphatase 57.6 Total Protein 6.82 Albumin 3.77 Globulin 3.05 Albumin/Globulin Ratio 1.23 Urine Color Urine Clarity Urine pH Ur Specific [place] Urine Protein Urine Glucose (UA) Urine Ketones Urine Blood Urine Nitrite Urine Bilirubin Urine Urobilinogen Ur Leukocyte Esterase Urine Microscopic RBC Urine Microscopic WBC Ur Squamous Epith Cells Urine Bacteria Urine Mucus Urine Test Orders Category Date Time Status CBC W/ AUTO DIFF Stat LAB 03/17/18 14:18 Completed COMPREHENSIVE METABOLIC PANEL Stat LAB 03/17/18 14:18 Completed TEST URINE [URINE ] Stat LAB 03/17/18 12:35 Completed URINALYSIS C & S IF INDICATED Stat LAB 03/17/18 12:35 Completed URINE CULTURE Stat LAB 03/17/18 12:35 Received Hydromorphone HCl [Dilaudid 1 mg/ml Syringe] MEDS 03/17/18 15:25 Discontinued 1 mg IM ONCE STA Lidocaine HCl/Pf [Lidocaine HCl 1% Sdv] MEDS 03/17/18 12:47 Stop Req 5 ml SUBCUT ONCE STA Ondansetron [Zofran Odt] MEDS 03/17/18 15:26 Discontinued 4 mg PO ONCE STA Medications Discontinued Medications Generic Name Dose Route Start Last Admin Trade Name Lion PRN Reason Stop Dose Admin Hydromorphone HCl 1 mg 03/17/18 15:25 03/17/18 15:29 Dilaudid 1 Mg/Ml Syringe IM 03/17/18 15:26 Not Given ONCE STA Lidocaine HCl 5 ml 03/17/18 12:47 03/17/18 12:55 Lidocaine Hcl 1% Sdv SUBCUT 03/17/18 12:48 Not Given ONCE STA Ondansetron HCl 4 mg 03/17/18 15:26 03/17/18 15:29 Zofran Odt PO 03/17/18 15:27 Not Given ONCE STA Vital Signs: Temp Pulse Resp BP Pulse Ox 03/17/18 12:26 96.8 F L 90 18 110/75 98 Departure - Departure Time of Disposition: 15:39 Disposition: HOME SELF-CARE Discharge Problem: Cough Instructions: Acute Bronchitis (ED) Condition: Good Pt referred to PMD for follow-up: Yes (Follow up with primary care) IPMP verified?: Yes (No record found [place]) Additional Instructions: Cough medication as prescribed. Follow up with primary care as needed - follow up with [facility] if abnormal vaginal bleeding continues. Prescriptions: Codeine/Promethazine Syrup [Phenergan with Codeine 6.25/10 mg/5 ml] 5 ml PO Q6H #80 disp.syrin Allergies/Adverse Reactions: Allergies No Known Allergies Allergy (Verified 03/17/18 12:30) Home Medications: Ambulatory Orders Codeine/Promethazine Syrup [Phenergan with Codeine 6.25/10 mg/5 ml] 5 ml PO Q6H #80 disp.syrin 03/17/18 Disposition Discussed With: Patient
[2018-03-17 14:21] LABS: URINE PREGNANCY TEST NEGATIVE (NEGATIVE)
[2018-03-17] MEDS: ZOFRAN ODT PO STA (15:29)
[2018-03-17] MEDS: DILAUDID 1 MG/ML SYRINGE IM STA (15:29)
== END 2018-03-17 15:58 | disposition home or self-care (01) ==
LOC: ED 12:25
DX: R05 Cough (principal); N93.9 Abnormal uterine and vaginal bleeding, unspecified; M54.5 Low back pain; F17.210 Nicotine dependence, cigarettes, uncomplicated
CPT/HCPCS: 36415; 80053; 81001; 81025; 85025; 87086; 99283

== ENCOUNTER 2018-06-18 20:01 | Emergency (ER) ==
[2018-06-18 20:03] VITALS: BMI 25.8
[2018-06-18 20:05] VITALS: BP 115/78; TEMP 97
[2018-06-18] MEDS ORDERED: NUBAIN IM STA (20:22)
--- NOTE | 2018-06-18 20:35 | ED.PDOC ---
General ED Provider: Dr. ENE DAVIS Chief Complaint: Back Pain Stated Complaint: Patient is a 27 year old female who comes to the ER with an exacerbation of chronic back pain that started after childbirth. States it worse today but denies any injury. She also states that she works Time Seen by Physician: 20:23 Mode of Arrival: Walk-In Information Source: Patient Exam Limitations: No limitations Primary Care Provider: TIFFANIE BEDOYA Nursing and Triage Documentation Reviewed and Agree: Yes Does patient meet sepsis criteria?: No System Inflammatory Response Syndrome: Not Applicable Sepsis Protocol: For patient's 13 years and over: Temp is 96.8 and below OR 101 and greater Pulse >90 BPM Resp >20/minute Acutely Altered Mental Status Are patient's symptoms suggestive of a new infection, such as: -Pneumonia -Skin, Soft Tissue -Endocarditis -UTI -Bone, Joint Infection -Implantable Device -Acute Abdominal Infection -Wound Infection -Meningitis -Blood Stream Catheter Infection -Unknown Musculoskeletal Complaint Exam - Ankle/Foot Complaint/Exam Location of Injury: Reports: Right, Foot Mechanism of Injury: Reports: No known trauma Onset/Duration: tonight Symptoms Are: Reports: Still present Onset of Pain: Reports: Immediate Initial Severity: Moderate Current Severity: Severe Location: Reports: Diffuse Character: Reports: Aching, Throbbing Alleviating: Reports: None Aggravating: Reports: Movement, Weight bearing, Prolonged standing Associated Signs and Symptoms: Denies: Swelling, Redness, Bruising, Fever, Weakness, Numbness, Tingling Gout Risk Factors: Reports: None Related Surgical History: Reports: None Lower Extremity Findings: Present: Tenderness (Mid foot ) Achilles Tendon Abnormality: No Tenderness: Present: Midfoot Limited Range of Motion: Present: Dorsiflexion Ankle/Foot Picture: 1 - tenderness Differential Diagnosis: Sprain, Strain, Tendonitis Review of Systems - Review Of Systems Constitutional: Reports: No symptoms Eyes: Reports: No symptoms Ears, Nose, Mouth, Throat: Reports: No symptoms Respiratory: Reports: No symptoms Cardiac: Reports: No symptoms GI: Reports: No symptoms : Reports: No symptoms Musculoskeletal: Reports: Back pain, Joint pain (Right foot ) Skin: Reports: No symptoms Neurological: Reports: Anxiety, Depressed Endocrine: Reports: No symptoms Hematologic/Lymphatic: Reports: No symptoms All Other Systems: Reviewed and Negative Past Medical History - Past Medical History Previously Healthy: Yes Endocrine: Reports: None Cardiovascular: Reports: None Respiratory: Reports: None Hematological: Reports: Anemia Gastrointestinal: Reports: None Genitourinary: Reports: None Neuro/Psych: Reports: Migraine Musculoskeletal: Reports: None Cancer: Reports: None Last Menstrual Period: 06/01/18 Other Pertinent Past Medical History: 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 ) Neurological: Sensation intact, Motor intact Interpretation - Radiology Interpretation Radiology Interpretation By: ED Physician Radiology Results: Negative Exam Interpreted: Other (Foot x ray ) Critical Care Note - Critical Care Note Total Time (mins): 0 Course - Course Orders, Labs, Meds: Orders Category Date Time Status Nalbuphine HCl [Nubain] MEDS 06/18/18 20:22 Discontinued 10 mg IM ONCE STA FOOT, RIGHT 3 VIEWS Stat RADS 06/18/18 20:22 Taken Medications Discontinued Medications Generic Name Dose Route Start Last Admin Trade Name Salomonq PRN Reason Stop Dose Admin Nalbuphine HCl 10 mg 06/18/18 20:22 06/18/18 20:53 Nubain IM 06/18/18 20:23 10 mg ONCE STA Administration Vital Signs: Temp Pulse Resp BP Pulse Ox 06/18/18 20:03 97.0 F L 76 18 115/78 98 Departure - Departure Time of Disposition: 21:39 Disposition: HOME SELF-CARE Discharge Problem: Foot sprain Qualifiers: Encounter type: initial encounter Laterality: right Qualified Code(s): S93.601A - Unspecified sprain of right foot, initial encounter Instructions: Foot Sprain (ED) Condition: Stable Pt referred to PMD for follow-up: Yes IPMP verified?: No Additional Instructions: Take Medications as needed for pain Follow up with PCP in 3 days Prescriptions: Ibuprofen [Motrin] 600 mg PO Q6H PRN #30 tablet PRN Reason: Analgesia Tramadol HCl [Ultram] 50 mg PO Q6H PRN #14 tablet PRN Reason: Severe Pain Allergies/Adverse Reactions: Allergies No Known Allergies Allergy (Verified 06/18/18 20:05) Home Medications: Ambulatory Orders Ibuprofen [Motrin] 600 mg PO Q6H PRN #30 tablet 06/18/18 Tramadol HCl [Ultram] 50 mg PO Q6H PRN #14 tablet 06/18/18 Disposition Discussed With: Patient
--- NOTE | 2018-06-19 07:06 | DI ---
EXAM: Three views of the right foot. History: Right mid foot pain. Findings: No acute fracture or dislocation. No abnormal calcifications or radiopaque foreign bodies . Joint spaces are preserved. Impression: Unremarkable exam
== END 2018-06-18 22:19 | disposition home or self-care (01) ==
LOC: ED 20:01
DX: S93.601A Unspecified sprain of right foot, initial encounter (principal); M54.9 Dorsalgia, unspecified; G89.29 Other chronic pain; F17.210 Nicotine dependence, cigarettes, uncomplicated
CPT/HCPCS: 96372; 99282

== ENCOUNTER 2018-06-30 15:09 | Emergency (ER) | payer OTHER ==
[2018-06-30 15:10] VITALS: BMI 25.8
[2018-06-30 15:24] VITALS: BP 104/68; TEMP 97.3
[2018-06-30 15:53] LABS: URINE PREGNANCY TEST NEGATIVE (NEGATIVE)
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
== END 2018-06-30 17:10 | disposition home or self-care (01) ==
LOC: ED 15:09
DX: M54.5 Low back pain (principal); V89.2XXA Person injured in unspecified motor-vehicle accident, traffic, initial encounter; F17.200 Nicotine dependence, unspecified, uncomplicated
CPT/HCPCS: 81025; 99283

== ENCOUNTER 2018-07-25 10:24 | Outpatient (CLI) | END 2018-07-25 10:25 | disposition home or self-care (01) | LOC: RHC-LAB 10:24 | PROVIDERS: ATTEND Nurse Practitioner Family | DX: R05 Cough (principal) | CPT/HCPCS: 87502 ==

== ENCOUNTER 2018-09-12 09:20 | Emergency (ER) ==
--- NOTE | 2018-09-12 09:35 | ED.PDOC ---
General ED Provider: Dr. RENZO SORTO MD Chief Complaint: Respiratory Complaint Stated Complaint: cough, fever Time Seen by Physician: 09:30 Mode of Arrival: Walk-In Information Source: Patient Exam Limitations: No limitations Primary Care Provider: TIFFANIE BEDOYA Nursing and Triage Documentation Reviewed and Agree: Yes Does patient meet sepsis criteria?: No If yes, has appropriate treatment been initiated?: Yes System Inflammatory Response Syndrome: Not Applicable Sepsis Protocol: For patient's 13 years and over: Temp is 96.8 and below OR 101 and greater Pulse >90 BPM Resp >20/minute Acutely Altered Mental Status Are patient's symptoms suggestive of a new infection, such as: -Pneumonia -Skin, Soft Tissue -Endocarditis -UTI -Bone, Joint Infection -Implantable Device -Acute Abdominal Infection -Wound Infection -Meningitis -Blood Stream Catheter Infection -Unknown Review of Systems - Review Of Systems Constitutional: Reports: Fever Eyes: Reports: No symptoms Ears, Nose, Mouth, Throat: Reports: No symptoms Respiratory: Reports: Cough (had flu last week) Cardiac: Reports: No symptoms GI: Reports: No symptoms : Reports: No symptoms Musculoskeletal: Reports: No symptoms Skin: Reports: No symptoms Neurological: Reports: No symptoms Endocrine: Reports: No symptoms Hematologic/Lymphatic: Reports: No symptoms All Other Systems: Reviewed and Negative Past Medical History - Past Medical History Previously Healthy: Yes Endocrine: Reports: None Cardiovascular: Reports: None Respiratory: Reports: None Hematological: Reports: Anemia Gastrointestinal: Reports: None Genitourinary: Reports: None Neuro/Psych: Reports: Migraine Musculoskeletal: Reports: None Cancer: Reports: None Other Pertinent Past Medical History: 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- - Surgical History General Surgical History: Reports: Tonsillectomy, Other (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-) - Family History Family History: Reports: Unknown - Social History Smoking Status: Current some day smoker Hx Substance Use: No Alcohol Screening: Occasionally Physical Exam - Physical Exam Appearance: Well-appearing, No pain distress, Well-nourished Eyes: TONO, EOMI, Conjunctiva clear ENT: Ears normal, Nose normal, Oropharynx normal Respiratory: Airway patent, Breath sounds clear, Breath sounds equal, Respirations nonlabored Cardiovascular: RRR, Pulses normal, No rub, No murmur GI/: Soft, Nontender, No masses, Bowel sounds normal, No Organomegaly Musculoskeletal: Normal strength, ROM intact, No edema, No calf tenderness Skin: Warm, Dry, Normal color Neurological: Sensation intact, Motor intact, Reflexes intact, Cranial nerves intact, Alert, Oriented Psychiatric: Affect appropriate, Mood appropriate Critical Care Note - Critical Care Note Total Time (mins): 0 Course - Course Orders, Labs, Meds: Lab Review 09/12/18 09:35 Influ A Molecular Assay Negative by naat Influ B Molecular Assay Negative by naat Orders Category Date Time Status FLU A/B MOLECULAR Stat LAB 09/12/18 09:35 Completed RAPID STREP SCREEN [MOLECULAR GROUP A STREP] Stat LAB 09/12/18 09:35 Completed Methylprednisolone Sod Succ/Pf [Solu-Medrol 125 mg] MEDS 09/12/18 09:37 Discontinued 125 mg IM ONCE STA Medications Discontinued Medications Generic Name Dose Route Start Last Admin Trade Name Freq PRN Reason Stop Dose Admin Methylprednisolone Sodium Succinate 125 mg 09/12/18 09:37 09/12/18 10:04 Solu-Medrol 125 Mg IM 09/12/18 09:38 125 mg ONCE STA Administration Vital Signs: Temp Pulse Resp BP Pulse Ox 09/12/18 09:22 99.0 F 87 20 117/79 98 Departure - Departure Time of Disposition: 10:45 Disposition: HOME SELF-CARE Discharge Problem: URI (upper respiratory infection) Qualifiers: URI type: unspecified viral URI Qualified Code(s): J06.9 - Acute upper respiratory infection, unspecified Instructions: Upper Respiratory Infection (ED) Condition: Good Pt referred to PMD for follow-up: Yes IPMP verified?: No Prescriptions: Prednisone 20 mg PO DAILYWM 5 Days #5 tablet NS Allergies/Adverse Reactions: Allergies No Known Allergies Allergy (Verified 09/12/18 09:30) Home Medications: Ambulatory Orders Prednisone 20 mg PO DAILYWM 5 Days #5 tablet NS 09/12/18
[2018-09-12] MEDS ORDERED: SOLU-MEDROL 125 MG IM STA (09:37)
[2018-09-12 09:55] VITALS: BP 117/79; TEMP 99; BMI 25.9
== END 2018-09-12 10:49 | disposition home or self-care (01) ==
LOC: ED 09:20
DX: J06.9 Acute upper respiratory infection, unspecified (principal); F17.210 Nicotine dependence, cigarettes, uncomplicated
CPT/HCPCS: 87502; 87651; 96372; 99283

== ENCOUNTER 2019-02-02 12:22 | Emergency (ER) ==
[2019-02-02 12:27] VITALS: BP 118/77; TEMP 99; BMI 26.1
[2019-02-02 14:18] LABS: URINE PREGNANCY TEST NEGATIVE (NEGATIVE)
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
== END 2019-02-02 16:11 | disposition home or self-care (01) ==
LOC: ED 12:22
DX: S19.9XXA Unspecified injury of neck, initial encounter (principal); S09.90XA Unspecified injury of head, initial encounter; M54.9 Dorsalgia, unspecified; V89.2XXA Person injured in unspecified motor-vehicle accident, traffic, initial encounter; F17.210 Nicotine dependence, cigarettes, uncomplicated
CPT/HCPCS: 81025; 99283